=== PATIENT | female | born 1995 | race Caucasian/White ===

== ENCOUNTER 2019-01-03 11:52 | Emergency (ER) | payer MEDICAID ==
[~2019-01-03] VITALS: Ht 157.5 cm; Wt 54.0 kg
[~2019-01-03 11:52] MED LIST: PHEN-640 PO; SULF1TAB35 PO
--- OUTSIDE RECORDS SUMMARY | 2019-01-03 11:56 | XMS REPORT | Continuity of Care Document ---
Author Organization Unknown Address Unknown Allergies Active Description Code Type Severity Reaction Onset Reported/Identified Relationship to Patient Clinical Status Yes No Known Drug Allergies [id number] Drug Allergy Unknown N/A 11/19/2018 Medications There is no data. Problems Date Dx Coded Attending Type Code Diagnosis Diagnosed By 11/24/2018 ALANNA DOSHI Ot O86.20 URINARY TRACT INFECTION FOLLOWING DELIVE 11/24/2018 ALANNA DOSHI Ot O90.89 OTH COMPLICATIONS OF THE PUERPERIUM, NEC Procedures There is no data. Results Test Result Range Complete urinalysis with reflex to culture - 11/19/18 19:11 Urine color determination YELLOW NRG Urine clarity determination CLEAR NRG Urine pH measurement by test strip 6 5-9 Specific gravity of urine by test strip 1.015 1.016-1.022 Urine protein assay by test strip, semi-quantitative NEGATIVE NEGATIVE Urine glucose detection by automated test strip NEGATIVE NEGATIVE Erythrocytes detection in urine sediment by light microscopy 1+ NEGATIVE Urine ketones detection by automated test strip NEGATIVE NEGATIVE Urine nitrite detection by test strip NEGATIVE NEGATIVE Urine total bilirubin detection by test strip NEGATIVE NEGATIVE Urine urobilinogen measurement by automated test strip (mass/volume) NORMAL NORMAL Urine leukocyte esterase detection by dipstick 2+ NEGATIVE Automated urine sediment erythrocyte count by microscopy (number/high power field) NONE NRG Automated urine sediment leukocyte count by microscopy (number/high power field) [HPF] NRG Bacteria detection in urine sediment by light microscopy MODERATE NRG Squamous epithelial cells detection in urine sediment by light microscopy 2-5 NRG Crystals detection in urine sediment by light microscopy NONE NRG Casts detection in urine sediment by light microscopy NONE NRG Mucus detection in urine sediment by light microscopy MODERATE NRG Complete urinalysis with reflex to culture YES NRG Bacterial urine culture - 11/19/18 19:11 Bacterial urine culture 3 OR MORE NRG COLONY COUNT 40,000 CFU/ML NRG FTX;REPORTABLE GRAM POSITIVES SUGGESTING PROBABLE NRG FREE TEXT ENTRY 2 COLLECTION CONTAMINATION WITH SKIN NRG FREE TEXT ENTRY 3 KENNY. NO SUSCEPTIBILITY PERFORMED NRG Encounters ACCT No. Visit Date/Time Discharge Status Pt. Type Provider Facility Loc./Unit Complaint [id number] 11/19/2018 18:34:00 11/19/2018 20:10:00 DIS Outpatient ALANNA DOSHI Via [facility] ER VAGINAL PAIN
[2019-01-03] MEDS ORDERED: PRD20T PO (12:20)
--- NOTE | 2019-01-03 12:20 | ED Upper Extremity ---
General Chief Complaint: Upper Extremity Stated Complaint: HAND PAIN History of Present Illness Date Seen by Provider: Jan 03, 2019 Time Seen by Provider: 12:00 Initial Comments 23 -year-old female presents for inflammation and pain in multiple joints. She states her hands are most noticeable however she is also been having symptoms in her elbows and right knee. 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 She does not have a primary care provider. She's been taking Tylenol 3-4 times a day with minimal improvement in her symptoms. She reports that her symptoms are worse in the morning, subside throughout the day. Onset: last week Severity: mild Pain/Injury Location: bilateral elbow, bilateral hand; right other (knee) Modifying Factors: Improves With Rest Allergies and Home Medications Allergies Coded Allergies: No Known Drug Allergies (Unverified , 11/19/18) Home Medications Naproxen 500 Mg Tablet, 500 MG PO BID Prescribed by: ALANNA DOSHI on 01/03/19 1233 Phenazopyridine HCl 200 Mg Tablet, 200 MG PO Q8H PRN for PAIN-MILD TO MODERATE Prescribed by: ALANNA DOSHI on 11/19/182004 Prednisone 20 Mg Tab, 20 MG PO DAILY Take 3 tablets once daily for 3 days; take 2 tablets once daily for 3 days; take 1 tablet once daily for 3 days. Prescribed by: ALANNA DOSHI on 01/03/19 1220 Sulfamethoxazole/Trimethoprim 1 Each Tablet, 1 EACH PO BID Prescribed by: ALANNA DOSHI on 11/19/182004 Patient Home Medication List Home Medication List Reviewed: Yes Review of Systems Constitutional: no symptoms reported, see HPI Musculoskeletal: see HPI, joint pain (hands, elbows, right knee) All Other Systems Reviewed Negative Unless Noted: Yes Past Dhyxlwq-Gfweij-Tywdfk Hx Past Med/Social Hx: Reviewed Nursing Past Med/Soc Hx Patient Social History Recent Foreign Travel: No Contact w/Someone Who Travel: No Recent Hopitalizations: Yes (child on 10/07/18) Past Medical History Surgeries: No Respiratory: No Cardiac: No Neurological: No Genitourinary: No Gastrointestinal: No Musculoskeletal: Yes Arthritis Endocrine: No HEENT: No Cancer: No Psychosocial: No Integumentary: No Physical Exam Vital Signs Vital Signs - First Documented 01/03/19 11:55 Temp 98.1 Pulse 53 Resp 16 B/P (MAP) 122/84 (97) Pulse Ox 99 Capillary Refill : Height, Weight, BMI Height: 5'1.00" Weight: 112lbs. oz. 50.038812mp; BMI Method:Stated General Appearance: WD/WN, no apparent distress HEENT: normal ENT inspection, TMs normal, pharynx normal Neck: non-tender, full range of motion, supple, normal inspection Cardiovascular: normal peripheral pulses, regular rate, rhythm Respiratory: chest non-tender, lungs clear, normal breath sounds Gastrointestinal: normal bowel sounds, non tender Shoulder: normal inspection, non-tender, no evidence of injury, normal ROM Elbow/Forearm: normal inspection, no evidence of injury, Right, Left, limited ROM (secondary to pain), pain Wrist: Yes normal inspection; No bone tenderness, No ecchymosis; Yes limited ROM (secondary to pain.), Yes pain; No soft tissue tenderness, No swelling Hand: normal inspection, normal ROM, Bilateral Neurologic/Psychiatric: no motor/sensory deficits, alert, normal mood/affect, oriented x 3 Skin: normal color, warm/dry No nodules to digits Progress/Results/Core Measures Results/Orders Vital Signs/I&O 01/03/19 01/03/19 11:55 12:54 Temp 98.1 98.1 Pulse 53 60 Resp 16 16 B/P (MAP) 122/84 (97) 126/71 (89) Pulse Ox 99 99 Departure Impression Primary Impression: Rheumatoid arthritis flare Disposition: 01 HOME, SELF-CARE Condition: Improved Departure-Patient Inst. Decision time for Depature: 12:15 Referrals: NO,LOCAL PHYSICIAN (PCP/Family) Primary Care Physician Patient Instructions: Rheumatoid Arthritis (DC) Add. Discharge Instructions: Alternate warm moist compresses and ice packs to swollen, painful joints. Take medication as directed. Establish care with a primary care provider and request a referral to rheumatology. Return to the emergency department for new, urgent health care problems. All discharge instructions reviewed with patient and/or family. Voiced understanding. Scripts Naproxen (Naprosyn) 500 Mg Tablet 500 MG PO BID, #30 TAB 0 Refills Prov: ALANNA DOSHI 01/03/19 Prednisone (Prednisone) 20 Mg Tab 20 MG PO DAILY, #18 TAB 0 Refills Take 3 tablets once daily for 3 days; take 2 tablets once daily for 3 days; take 1 tablet once daily for 3 days. Prov: ALANNA DOSHI 01/03/19 ALANNA DOSHI Jan 03, 2019 12:20
[2019-01-03] MEDS ORDERED: NAPR-1071 PO (12:33)
[2019-01-03 12:54] VITALS: BP 126/71
== END 2019-01-03 12:54 | disposition home or self-care (01) ==
LOC: EDUNIT# 11:52 → MERGE 11:53 → ER 11:53
DX: M06.9 Rheumatoid arthritis, unspecified (principal)
CPT/HCPCS: 99282

== ENCOUNTER 2019-04-25 18:04 | Emergency (ER) | payer SELFPAY ==
[~2019-04-25] VITALS: Ht 155 cm; Wt 45.0 kg
[~2019-04-25 18:04] MED LIST changes: +NAPR-1071 PO; +PRD20T PO
[2019-04-25 19:37] LABS: BILIRUBIN,URINE NEGATIVE (NEGATIVE); CLARITY,URINE VERY CLOUDY; COLOR,URINE YELLOW; GLUCOSE, URINE (UA) NEGATIVE (NEGATIVE); KETONES,URINE NEGATIVE (NEGATIVE); LEUKOCYTE ESTERASE ,URINE 1+ (NEGATIVE); NITRITE,URINE NEGATIVE (NEGATIVE); PH,URINE 8 (5-9); PROTEIN,URINE NEGATIVE (NEGATIVE)
[2019-04-25 19:52] LABS: AMORPHOUS SEDIMENT,UR LARGE AMOR PHOSPHATE /LPF
[2019-04-25 19:54] LABS: BACTERIA,URINE NEGATIVE /HPF
[2019-04-25] MEDS ORDERED: cefTRIAXone 500 MG/1.43 ML vial (IM ONLY) IM ONE (20:30)
[2019-04-25] MEDS ORDERED: LIDOCAINE 1% INJ 20 ML 20 ML VIAL INJ ONE (20:30)
[2019-04-25] MEDS ORDERED: AZITHROMYCIN 250 MG TAB (ZITHROMAX) PO ONE (20:30)
--- NOTE | 2019-04-25 20:43 | ED GU-Female ---
General Chief Complaint: CARGO CHECKER Stated Complaint: POSSIBLE INFECTION IN VAGINAL AREA Nursing Triage Note: Pt amb to triage with c/o possible vaginal infection. Pt reports her boyfriend cheated on her and wants to be checked from STD's. Reports intermittent "redish brown discharge for about two weeks." Denies painful intercourse. Denies urinary symptoms. Denies fever or chills. Nursing Sepsis Screen: No Definite Risk History of Present Illness Date Seen by Provider: Apr 25, 2019 Time Seen by Provider: 19:30 Initial Comments 24-year-old female presents for possible STI exposure. She denies any previous history of STIs. He recently found out that her boyfriend cheated on her. She denies any abdominal pain, dysuria or urinary frequency Associated Symptoms: denies symptoms Allergies and Home Medications Allergies Coded Allergies: No Known Drug Allergies (Unverified , 02/17/16) Home Medications Naproxen 500 Mg Tablet, 500 MG PO BID Prescribed by: ALANNA DOSHI on 01/03/19 1233 Phenazopyridine HCl 200 Mg Tablet, 200 MG PO Q8H PRN for PAIN-MILD TO MODERATE Prescribed by: ALANNA DOSHI on 11/19/182004 Prednisone 20 Mg Tab, 20 MG PO DAILY Take 3 tablets once daily for 3 days; take 2 tablets once daily for 3 days; take 1 tablet once daily for 3 days. Prescribed by: ALANNA DOSHI on 01/03/19 1220 Sulfamethoxazole/Trimethoprim 1 Each Tablet, 1 EACH PO BID Prescribed by: ALANNA DOSHI on 11/19/182004 Patient Home Medication List Home Medication List Reviewed: Yes Review of Systems Review of Systems Constitutional: no symptoms reported, see HPI Genitourinary: see HPI, discharge : No All Other Systemes Reviewed Negative Unless Noted: Yes Past Womuhjx-Kzprhg-Ndbmyh Hx Past Med/Social Hx: Reviewed Nursing Past Med/Soc Hx Patient Social History Alcohol Use: Denies Use Recreational Drug Use: No Smoking Status: Never a Smoker 2nd Hand Smoke Exposure: No Recent Foreign Travel: No Contact w/Someone Who Travel: No Recent Infectious Disease Expo: No Recent Hopitalizations: Yes (child on 10/07/18) Immunizations Up To Date Tetanus Booster (TDap): More than 5yrs Seasonal Allergies Seasonal Allergies: No Past Medical History Surgeries: No Abdominal Respiratory: No Cardiac: No Neurological: No Reproductive Disorders: No Genitourinary: No Gastrointestinal: No Obstructive Bowel Musculoskeletal: Yes Arthritis, Rheumatoid Arthritis Endocrine: No HEENT: No Cancer: No Psychosocial: No Integumentary: No Blood Disorders: Yes (anemia) Adverse Reaction/Blood Tranf: No Physical Exam Vital Signs Vital Signs - First Documented 04/25/19 18:30 Temp 36.4 Pulse 73 Resp 15 B/P (MAP) 132/78 (96) Pulse Ox 98 O2 Delivery Room Air Capillary Refill : Less Than 3 Seconds Height, Weight, BMI Height: 5'2.00" Weight: 119lbs. oz. 53.298340xn; 18.00 BMI Method:Stated General Appearance: WD/WN, no apparent distress Gastrointestinal: normal bowel sounds, non tender, soft Neurologic/Psychiatric: no motor/sensory deficits, alert, oriented x 3 Skin: normal color, warm/dry Progress/Results/Core Measures Suspected Sepsis Recent Fever Within 48 Hours: No Infection Criteria Present: None New/Unexplained Altered Menta: No Sepsis Screen: No Definite Risk SIRS Temperature: Pulse: 73 Respiratory Rate: 15 Blood Pressure 132 /78 Mean: 96 Results/Orders Lab Results Laboratory Tests Test 04/25/19 19:20 Range/Units Urine Color YELLOW Urine Clarity VERY CLOUDY H Urine pH 8 5-9 Urine Specific [place] 1.010 L 1.016-1.022 Urine Protein NEGATIVE NEGATIVE Urine Glucose (UA) NEGATIVE NEGATIVE Urine Ketones NEGATIVE NEGATIVE Urine Nitrite NEGATIVE NEGATIVE Urine Bilirubin NEGATIVE NEGATIVE Urine Urobilinogen NORMAL NORMAL MG/DL Urine Leukocyte Esterase 1+ H NEGATIVE Urine RBC (Auto) NEGATIVE NEGATIVE Urine RBC NONE /HPF Urine WBC 2-5 /HPF Urine Crystals PRESENT H /LPF Urine Amorphous Sediment LARGE ASAD PHOSPHATE H /LPF Urine Bacteria NEGATIVE /HPF Urine Casts NONE /LPF Urine Mucus NEGATIVE /LPF Urine Culture Indicated NO My Orders Orders - ALANNA DOSHI Syphilis Antibody Screen (04/25/19 20:01) Neis Patrick Dna Urine Test (04/25/19 20:01) Chlamydia Trachomatis Urine (04/25/19 20:01) Azithromycin Tablet (Zithromax Tablet) (04/25/19 20:30) Ceftriaxone For Im Use (Rocephin For Im (04/25/19 20:30) Lidocaine 1% Inj 20 Ml (Xylocaine 1% Inj (04/25/19 20:30) Medications Given in ED Current Medications Medications Dose Ordered Sig/Mukund Route Start Time Stop Time Status Last Admin Dose Admin Azithromycin 1,000 mg ONCE ONCE PO 04/25/19 20:30 04/25/19 20:31 DC 04/25/19 20:36 1,000 MG Ceftriaxone Sodium 250 mg ONCE ONCE IM 04/25/19 20:30 04/25/19 20:31 DC 04/25/19 20:37 250 MG Lidocaine HCl 1 ml ONCE ONCE INJ 04/25/19 20:30 04/25/19 20:31 DC 04/25/19 20:36 1 ML Vital Signs/I&O 04/25/19 18:30 Temp 36.4 Pulse 73 Resp 15 B/P (MAP) 132/78 (96) Pulse Ox 98 O2 Delivery Room Air Capillary Refill : Less Than 3 Seconds Blood Pressure Mean: 96 POS Progress Note : Time: 19:30 Progress Note Patient seen and evaluated, labs will be obtained. Discussed with her prophylactic treating with Rocephin and azithromycin. We will call her with results of tests. Discharge instructions and return precautions reviewed with her. Departure Impression Primary Impression: Vaginal discharge Disposition: 01 HOME, SELF-CARE Condition: Improved Departure-Patient Inst. Decision time for Depature: 20:30 Referrals: NO,LOCAL PHYSICIAN (PCP/Family) Primary Care Physician Patient Instructions: Sexually-Transmitted Diseases (DC) Add. Discharge Instructions: Avoid sexual intercourse until lab results are called to you. Follow-up with your primary care provider if symptoms do not improve or worsen. Return to emergency department for new, urgent health care problems. All discharge instructions reviewed with patient and/or family. Voiced understanding. ALANNA DOSHI Apr 25, 2019 20:43 POS
[2019-04-25 20:50] VITALS: BP 133/79
== END 2019-04-25 20:49 | disposition home or self-care (01) ==
LOC: EDUNIT# 18:04 → ER 18:06
DX: N89.8 Other specified noninflammatory disorders of vagina (principal); M06.9 Rheumatoid arthritis, unspecified; D64.9 Anemia, unspecified; Z79.52 Long term (current) use of systemic steroids
CPT/HCPCS: 36415; 81000; 84703; 87491; 87591; 96372; 99284